=== PATIENT | male | born 1955 | race Caucasian/White ===

== ENCOUNTER 2018-10-06 14:56 | Emergency (ER) | payer BC ==
--- NOTE | 2018-10-06 15:50 | EDM.PDOC ---
ED HPI GENERAL MEDICAL PROBLEM - General Chief Complaint: General Stated Complaint: FALL ON SATURDAY, WEAKNESS Time Seen by Provider: 10/06/18 15:26 Source of Information: Reports: Patient History Limitations: Reports: No Limitations - History of Present Illness INITIAL COMMENTS - FREE TEXT/NARRATIVE: Teto is a 63 year old male who presents to the ED via [facility] with c/o shakiness and recent fall. He was at the local liquor store when apparently his left leg got weak and he fell into a shelf. He reports he just leaned on it and did not fall completely to the ground. Bystander called EMS. He reports on Saturday10/03/2018 he fell down the stairs in his home. Does not recall much of the fall. Reports there he did get large laceration to the top of his head and bled a large amount. He reports he woke up and doesn't recall ~ 4 hours following the fall. He reports that Saturday and Saturday he was vomiting "liquid. " He reports he has felt more "shaky and weak" but other than that feels well. Denies any N/V/D, dizziness, headache, CP, SOB, abdominal pain, bloody/dark stools, hematemesis. He denies any pain. Does have generalized bruising throughout entire body as well as ~5 cm laceration to top of head. GCS 15. Does admit that he drank ~ 5-6 beers today. Reports normally he drinks 10-15 drinks per day. Was not drinking at time of fall on Saturday10/03/2018. Onset Date: 10/03/18 Duration: Getting Worse Location: Reports: Generalized Associated Symptoms: Reports: Weakness. Denies: Confusion, Chest Pain, Cough, cough w sputum, Diaphoresis, Fever/Chills, Headaches, Loss of Appetite, Malaise , Nausea/Vomiting, Rash, Seizure, Shortness of Breath, Syncope - Related Data Allergies Allergy/AdvReac Type Severity Reaction Status Date / Time No Known Allergies Allergy Verified 10/06/18 15:14 Home Meds: Home Meds Metoprolol Succinate 50 mg PO DAILY 01/25/15 [History] ALPRAZolam [Alprazolam] 0.25 mg PO QID PRN 10/06/18 [History] Calcium Carbonate/Vitamin D3 [Calcium 600 + Vit D Tablet] 1 each PO DAILY [History] Cholecalciferol (Vitamin D3) [Vitamin D3] 5,000 unit PO DAILY 10/06/18 [History] Cyanocobalamin (Vitamin B-12) [Cyanocobalamin Injection] 1,000 mcg IM Q30D 10/06 [History] Ibuprofen/Diphenhydramine Cit [Advil Pm Caplet] 1 each PO BEDTIME 10/06/18 [ History] Lisinopril 10 mg PO DAILY 10/06/18 [History] [place]-3/DHA/Epa/Fish Oil [[place] 3 500 Softgel] 1,000 mg PO DAILY 10/06/18 [ History] Sertraline HCl 50 mg PO DAILY 10/06/18 [History] ED ROS GENERAL - Review of Systems Review Of Systems: See Below Constitutional: Reports: Weakness. Denies: Fever, Chills, Malaise, Fatigue, Decreased Appetite HEENT: Denies: Vertigo, Vision Change Respiratory: Denies: Shortness of Breath, Wheezing, Cough Cardiovascular: Denies: Chest Pain, Dyspnea on Exertion, Edema, Lightheadedness , Orthopnea, Palpitations, Syncope Endocrine: Denies: Fatigue GI/Abdominal: Denies: Abdominal Pain, Diarrhea, Decreased Appetite, Hematemesis , Hematochezia, Melena, Nausea, Vomiting : Denies: Dysuria, Flank Pain, Frequency, Hematuria, Urgency Musculoskeletal: Denies: Neck Pain, Shoulder Pain, Arm Pain, Back Pain, Leg Pain Skin: Reports: Bruising (generalized, Left side > right) Neurological: Denies: Confusion, Dizziness, Headache, Numbness, Paresthesia, Syncope, Tingling, Tremors, Difficulty Walking, Weakness ED EXAM, GENERAL - Physical Exam Exam: See Below Exam Limited By: No Limitations General Appearance: Alert, WD/WN, No Apparent Distress Eye Exam: Bilateral Eye: EOMI, Normal Fundi, Normal Inspection, PERRL Ears: Normal Canal, Normal TMs, Other (bruising to left ) Ear Exam: Left Ear: Swelling Nose: Normal Inspection, Normal Mucosa, No Blood Throat/Mouth: Normal Inspection, Normal Lips, Normal Teeth, Normal Gums, Normal Oropharynx, Normal Voice, No Airway Compromise Head: Other (laceration to anterior scalp). No: Facial Tenderness Neck: Normal Inspection, Supple, Non-Tender, Full Range of Motion. No: Tender Lateral, Tender Midline Respiratory/Chest: No Respiratory Distress, Lungs Clear, Normal Breath Sounds, No Accessory Muscle Use, Chest Non-Tender Cardiovascular: Normal Peripheral Pulses, Regular Rate, Rhythm, No Edema, Systolic Murmur Peripheral Pulses: 2+: Radial (L), Radial (R), Posterior Tibial (L), Posterior Tibial (R), Dorsalis Pedis (L), Dorsalis Pedis (R) GI/Abdominal: Normal Bowel Sounds, Soft, Non-Tender, No Organomegaly, No Distention, No Abnormal Bruit, No Mass Back Exam: Normal Inspection, Full Range of Motion, Other (bruising). No: Decreased Range of Motion, Paraspinal Tenderness, Vertebral Tenderness Extremities: Normal Inspection, Normal Range of Motion, Non-Tender, No Pedal Edema, Normal Capillary Refill, Other (bruising bilaterally) Neurological: Alert, Oriented, CN II-XII Intact, Normal Cognition, No Motor/ Sensory Deficits, Memory Loss Recent Events, Abnormal Gait (unsteady ). No: Confused Psychiatric: Normal Affect, Normal Mood Skin Exam: Ecchymosis (generalized), Wound/Incision (anterior scalp, 5 cm, scabbed) Course - Vital Signs Last Recorded V/S: Last Vital Signs Temp 98.3 F 10/06/18 17:08 Pulse 85 10/06/18 17:08 Resp 16 10/06/18 17:08 BP 138/84 10/06/18 17:08 Pulse Ox 98 10/06/18 17:08 - Orders/Labs/Meds Orders: Active Orders 24 hr Category Date Time Status Head wo Cont [CT] Stat Exams 10/06/18 15:03 Taken C-REACTIVE PROTEIN [CHEM] Stat Lab 10/06/18 15:00 Received CREATINE KINASE,CK [CHEM] Stat Lab 10/06/18 15:00 Received ETHANOL BLOOD MEDICAL [CHEM] Stat Lab 10/06/18 15:00 Received Labs: Laboratory Tests 10/06/18 10/06/18 10/06/18 Range/Units 15:00 15:00 16:04 WBC 3.9 L (5.0-10.0) 10^3/uL RBC 3.02 L (4.50-6.00) 10^6/uL Hgb 8.1 L (14.0-18.0) g/dL Hct 24.8 L (40.0-54.0) % MCV 82.1 (82.0-94.0) fL MCH 26.8 L (27.0-32.0) pg MCHC 32.7 L (33.0-38.0) g/dL RDW Coeff of Chad 15.2 H (11.0-15.0) % Plt Count 54 L (150-400) 10^3/uL Neut % (Auto) 64.7 (35-85) % Lymph % (Auto) 21.5 (10-55) % [place] % (Auto) 13.2 (0-16) % Eos % (Auto) 0.3 (0-5) % Baso % (Auto) 0.3 (0-3) % Neut # (Auto) 2.50 (1.80-7.00) 10^3/uL Lymph # (Auto) 0.83 L (1.00-4.80) 10^3/uL [place] # (Auto) 0.51 (0.00-0.80) 10^3/uL Eos # (Auto) 0.01 (0.00-0.45) 10^3/uL Baso # (Auto) 0.01 10^3/uL POC Sodium 117 L (138-146) mmol/L POC Potassium 4.1 (3.5-4.9) mmol/L POC Chloride 83 L (98-109) mmol/L POC Total CO2 17 L (21-32) mmol/L POC BUN < 3 L (8-26) mg/dL POC Creatinine 1.0 (0.6-1.3) mg/dL POC Glucose 87 (70-99) mg/dL POC WB Ioniz Calcium 1.1 L (1.12-1.32) Blood Type O NEGATIVE Gel Antibody Screen Negative - Radiology Interpretation Free Text/Narrative:: Subdural hematoma, most prominent left parietal area (4 mm), as well as posterior aspect of interhemispheric fissure extending over the left side of the tentorium. CT Results Date: 10/06/18 CT Results Time: 16:10 - Re-Assessments/Exams Free Text/Narrative Re-Assessment/Exam: 10/06/18 16:[address] Saunders (ED physician) who accepted patient for transfer. 10/06/18 16:19 Discussed risks and benefits of transfer with patient. Risks of transfer include worsening of condition, , and MVA. Benefits of transfer include higher level of care with neurosurgical consultation. Risks of nontransfer include worsening of condition, , and no neurosurgical consultation. Benefits of nontransfer include convenience. Patient verbalized understanding and was agreeable to transfer. Discussed code status with patient. Patient code level I. Departure - Departure Time of Disposition: 16:15 Disposition: DC/Tfer to [facility] 02 Condition: Fair Clinical Impression: Subdural hematoma, acute, Hyponatremia Anemia Qualifiers: Anemia type: unspecified type Qualified Code(s): D64.9 - Anemia, unspecified - Discharge Information *PRESCRIPTION DRUG MONITORING PROGRAM REVIEWED*: Not Applicable *COPY OF PRESCRIPTION DRUG MONITORING REPORT IN PATIENT KERVIN: Not Applicable Referrals: Amanda Sierra PA-C [Primary Care Provider] - Forms: ED Department Discharge - Problem List & Annotations (1) Subdural hematoma, acute SNOMED Code(s): 011086314, 772279653 Code(s): S06.5X9A - TRAUM SUBDR HEM W LOC OF UNSP DURATION, INIT Status: Acute (2) Hyponatremia SNOMED Code(s): 78002821 Code(s): E87.1 - HYPO-OSMOLALITY AND HYPONATREMIA Status: Acute (3) ETOH abuse SNOMED Code(s): 09697469 Code(s): F10.10 - ALCOHOL ABUSE, UNCOMPLICATED Status: Acute (4) Anemia SNOMED Code(s): 134691856 Code(s): D64.9 - ANEMIA, UNSPECIFIED Status: Acute Qualifiers: Anemia type: unspecified type Qualified Code(s): D64.9 - Anemia, unspecified - Problem List Review Problem List Initiated/Reviewed/Updated: Yes - My Orders Last 24 Hours: My Active Orders 10/06/18 15:00 C-REACTIVE PROTEIN [CHEM] Stat CREATINE KINASE,CK [CHEM] Stat ETHANOL BLOOD MEDICAL [CHEM] Stat 10/06/18 15:03 Head wo Cont [CT] Stat - Assessment/Plan Last 24 Hours: My Active Orders 10/06/18 15:00 C-REACTIVE PROTEIN [CHEM] Stat CREATINE KINASE,CK [CHEM] Stat ETHANOL BLOOD MEDICAL [CHEM] Stat 10/06/18 15:03 Head wo Cont [CT] Stat Plan: Patient will be transferred to [facility] via [facility]. GCS remains 15 throughout ED visit. PLEASE SEE NURSES NOTES FOR PMH, PSH, SH & FH.
[2018-10-06 17:09] VITALS: BP 138/84
== END 2018-10-06 17:14 ==
LOC: CC.ED 14:56
DX: S06.5X9A Traumatic subdural hemorrhage with loss of consciousness of unspecified duration, initial encounter (principal); S01.01XA Laceration without foreign body of scalp, initial encounter; S00.432A Contusion of left ear, initial encounter; E87.1 Hypo-osmolality and hyponatremia; D64.9 Anemia, unspecified; Z79.899 Other long term (current) drug therapy; W19.XXXA Unspecified fall, initial encounter
CPT/HCPCS: 36415; 70450; 80047; 82550; 85025; 86140; 86850; 86900; 86901; 93005; 99285-25; G0480

== ENCOUNTER 2018-10-14 10:31 | Emergency (ER) | payer BC ==
[2018-10-14 10:49] VITALS: BP 121/76; PULSE 62
[2018-10-14 11:06] LABS: CHLORIDE,CL 100 mEq/L (98-106); SODIUM,NA 138 mEq/L (136-145)
--- NOTE | 2018-10-14 11:31 | EDM.PDOC ---
ED HPI GENERAL MEDICAL PROBLEM - General Chief Complaint: General Stated Complaint: "I have low blood pressure" Time Seen by Provider: 10/14/18 11:02 Source of Information: Reports: Patient History Limitations: Reports: No Limitations - History of Present Illness INITIAL COMMENTS - FREE TEXT/NARRATIVE: Patient presents to ER due to concerns of low blood pressure and feeling lightheaded this am. He was just discharged from [place] due to a subdural bleed. He had fallen x2 prior to this. States was hospitalized there for a week, discharged home yesterday. Did have issues with hypertension per ex- while there. He had a low sodium there, had been on fluid restriction. Hemoglobin prior to transfer was 8.0. [place] related to iron deficiency, started on iron while there. Also placed on Keppra. Went to the pharmacy this am to merchandise pickup/receiving associate his new meds. Had noted prior to this when getting up, felt lightheaded. Checked his blood pressure at the pharmacy and was 70s/40s. Came to the clinic to have his blood pressure rechecked and continued to be low so was sent to the ER. On arrival, admits is feeling better. Blood pressure normal on arrival. Had taken both of his blood pressure pills at home this am. Has been pushing fluids but admits could be dehydrated as had been on fluid restriction. Was given Gatorade while there and held off on water. Patient denies any chest pain or shortness of breath. No nausea or vomiting. No headache. Ex- states he has returned more "to his normal self by discharge in [place]". Onset: Today Duration: Hour(s): Location: Reports: Generalized Improves with: Reports: Rest Worsens with: Reports: Movement Associated Symptoms: Reports: Diaphoresis, Malaise, Weakness. Denies: Confusion , Chest Pain, Cough, Fever/Chills, Nausea/Vomiting, Shortness of Breath - Related Data Allergies Allergy/AdvReac Type Severity Reaction Status Date / Time No Known Allergies Allergy Verified 10/06/18 15:14 Home Meds: Home Meds Metoprolol Succinate 50 mg PO DAILY 01/25/15 [History] ALPRAZolam [Alprazolam] 0.25 mg PO QID PRN 10/06/18 [History] Calcium Carbonate/Vitamin D3 [Calcium 600 + Vit D Tablet] 1 each PO DAILY [History] Cholecalciferol (Vitamin D3) [Vitamin D3] 5,000 unit PO DAILY 10/06/18 [History] Cyanocobalamin (Vitamin B-12) [Cyanocobalamin Injection] 1,000 mcg IM Q30D 10/06 [History] Ibuprofen/Diphenhydramine Cit [Advil Pm Caplet] 1 each PO BEDTIME 10/06/18 [ History] Lisinopril 10 mg PO DAILY 10/06/18 [History] [place]-3/DHA/Epa/Fish Oil [[place] 3 500 Softgel] 1,000 mg PO DAILY 10/06/18 [ History] Sertraline HCl 50 mg PO DAILY 10/06/18 [History] Ferrous Sulfate [Ferosul] 325 mg PO ASDIRECTED 10/14/18 [History] Omeprazole 20 mg PO ACBREAKFAST 10/14/18 [History] levETIRAcetam [Keppra] 500 mg PO BID 10/14/18 [History] Past Medical History Cardiovascular History: Reports: High Cholesterol, Hypertension Gastrointestinal History: Reports: GERD Genitourinary History: Reports: BPH, Other (See Below) Other Genitourinary History: nocturia Musculoskeletal History: Reports: Arthritis Psychiatric History: Reports: Anxiety, Depression Endocrine/Metabolic History: Reports: Obesity/BMI 30+, Vitamin D Deficiency, Other (See Below) Other Endocrine/Metabolic History: pancytopenia Social & Family History - Tobacco Use Smoking Status *Q: Never Smoker Second Hand Smoke Exposure: No - Caffeine Use Caffeine Use: Reports: Coffee ED ROS GENERAL - Review of Systems Review Of Systems: See Below Constitutional: Reports: Malaise, Weakness, Fatigue. Denies: Fever, Chills, Decreased Appetite HEENT: Denies: Ear Pain, Sinus Problem, Vertigo Respiratory: Denies: Shortness of Breath, Cough Cardiovascular: Reports: Lightheadedness. Denies: Chest Pain, Edema Endocrine: Reports: Fatigue GI/Abdominal: Reports: Melena (states stool color has changed, did question if blood noted but states difficult to tell as stools are black now due to iron). Denies: Abdominal Pain, Hematemesis, Nausea, Vomiting : Reports: No Symptoms Musculoskeletal: Reports: No Symptoms Skin: Reports: Pallor, Bruising Neurological: Reports: Weakness. Denies: Dizziness, Headache - Physical Exam Exam: See Below Exam Limited By: No Limitations General Appearance: Alert, WD/WN, No Apparent Distress Eye Exam: Bilateral Eye: EOMI, PERRL Ears: Normal External Exam, Normal TMs Nose: Normal Inspection, Normal Mucosa, No Blood Throat/Mouth: Normal Inspection, Normal Oropharynx Head Exam: Normocephalic Neck: Normal Inspection, Supple, Non-Tender Respiratory/Chest: No Respiratory Distress, Lungs Clear, Normal Breath Sounds Cardiovascular: Regular Rate, Rhythm GI/Abdominal: Normal Bowel Sounds, Soft, Non-Tender Rectal (Males) Exam: Normal Exam, Normal Rectal Tone, Heme - Stool Neuro Exam (Abbreviated): Alert, Oriented Extremities: Normal Inspection, No Pedal Edema Skin Exam: Warm, Dry, Ecchymosis (scattered bruises to arms) Course - Vital Signs Last Recorded V/S: Last Vital Signs Temp 97.9 F 10/14/18 10:48 Pulse 62 10/14/18 10:48 Resp 20 10/14/18 10:48 BP 121/76 10/14/18 10:48 Pulse Ox 100 10/14/18 10:48 - Orders/Labs/Meds Orders: Active Orders 24 hr Category Date Time Status Abdomen 2V AP Flat Upright [CR] Stat Exams 10/14/18 10:41 Taken UA W/MICROSCOPIC [URIN] Stat Lab 10/14/18 10:41 Ordered Labs: Laboratory Tests 10/14/18 10/14/18 Range/Units 10:54 10:54 WBC 4.1 L (5.0-10.0) 10^3/uL RBC 3.67 L (4.50-6.00) 10^6/uL Hgb 10.1 L (14.0-18.0) g/dL Hct 32.8 L (40.0-54.0) % MCV 89.4 (82.0-94.0) fL MCH 27.5 (27.0-32.0) pg MCHC 30.8 L (33.0-38.0) g/dL RDW Coeff of [place] 19.3 H (11.0-15.0) % Plt Count 168 (150-400) 10^3/uL Neut % (Auto) 61.9 (35-85) % Lymph % (Auto) 19.8 (10-55) % [place] % (Auto) 16.6 H (0-16) % Eos % (Auto) 1.0 (0-5) % Baso % (Auto) 0.7 (0-3) % Neut # (Auto) 2.53 (1.80-7.00) 10^3/uL Lymph # (Auto) 0.81 L (1.00-4.80) 10^3/uL [place] # (Auto) 0.68 (0.00-0.80) 10^3/uL Eos # (Auto) 0.04 (0.00-0.45) 10^3/uL Baso # (Auto) 0.03 10^3/uL Sodium 138 (136-145) mEq/L Potassium 3.5 (3.5-5.0) mEq/L Chloride 100 (98-106) mEq/L Carbon Dioxide 27 (21-32) mmol/L BUN 24 H D (7-18) mg/dL Creatinine 1.2 (0.7-1.3) mg/dL Est Cr Clr Drug Dosing 66.75 mL/min Estimated GFR (MDRD) > 60 (>=60) mL/min Glucose 130 H (75-99) mg/dL Calcium 9.7 (8.4-10.1) mg/dL Total Bilirubin 1.2 H (0.0-1.0) mg/dL AST 90 H (15-37) U/L ALT 109 H (12-78) U/L Alkaline Phosphatase 56 (46-116) U/L C-Reactive Protein 1.0 H (0.2-0.8) mg/dL Total Protein 7.4 (6.4-8.2) g/dL Albumin 3.7 (3.4-5.0) g/dL - Re-Assessments/Exams Free Text/Narrative Re-Assessment/Exam: 10/14/18 Labs reviewed with patient. Hemoglobin is improved today from last evaluation at 10. Blood pressure had remained stable while in the ER. Discussed keeping patient in observation but refuses. Parents are coming today to stay with him for the next month, ex- is involved as well. Agrees to obtain blood pressure cuff, check blood pressures at home and keep log. Call in tomorrow morning for recommendations on meds. Drink Gatorade to keep sodium up. Watch stools for changes/blood and return as needed. Admits to feeling better now and does not want to be hospitalized. Departure - Departure Time of Disposition: 11:29 Disposition: Home, Self-Care 01 Condition: Fair Clinical Impression: Hypotension Qualifiers: Hypotension type: orthostatic hypotension Qualified Code(s): I95.1 - Orthostatic hypotension - Discharge Information *PRESCRIPTION DRUG MONITORING PROGRAM REVIEWED*: No *COPY OF PRESCRIPTION DRUG MONITORING REPORT IN PATIENT KERVIN: No Referrals: Amanda Sierra PA-C [Primary Care Provider] - Forms: ED Department Discharge Additional Instructions: 1. Rest 2. Push Gatorade 3. Continue to take iron, Keppra and Omeprazole daily and other usual meds. Hold blood pressure pills in am until recommendations 4. Monitor blood pressure twice a day, keep log. Call in am for recommendations on blood pressure meds 5. Follow up if note any obvious changes or blood in your stools. 6. See Amanda Sierra next week as scheduled - My Orders Last 24 Hours: My Active Orders 10/14/18 10:41 Abdomen 2V AP Flat Upright [CR] Stat UA W/MICROSCOPIC [URIN] Stat - Assessment/Plan Last 24 Hours: My Active Orders 10/14/18 10:41 Abdomen 2V AP Flat Upright [CR] Stat UA W/MICROSCOPIC [URIN] Stat
== END 2018-10-14 11:45 | disposition home or self-care (01) ==
LOC: CC.ED 10:31
DX: I95.1 Orthostatic hypotension (principal); I10 Essential (primary) hypertension; K21.9 Gastro-esophageal reflux disease without esophagitis; F41.9 Anxiety disorder, unspecified; F32.9 Major depressive disorder, single episode, unspecified; E66.9 Obesity, unspecified; M19.90 Unspecified osteoarthritis, unspecified site; Z79.899 Other long term (current) drug therapy
CPT/HCPCS: 36415; 74019; 80053; 85025; 86140; 99284-25